=== PATIENT | female | born 1945 | race Caucasian/White ===

== ENCOUNTER 2023-01-14 07:54 | Emergency (ER) | payer OTHER ==
[~2023-01-14] VITALS: Ht 160 cm; Wt 65.8 kg
[~2023-01-14 07:54] MED LIST: LISI20TA30 PO
[2023-01-14 07:55] VITALS: BP_SYST 151
--- NOTE | 2023-01-14 07:57 | NUR ---
BROUGHT BACK TO BED #5 AND TRIAGED. REPORT GIVEN TO KAREN
--- NOTE | 2023-01-14 08:01 | NUR ---
BIB HOME BY WITH C/O SEVERE ABN PAIN / THAT STARTED LAST NIGHT AND BECAME WORSE THIS MORNING. PT STATES SHE WAS TREATED WITH ANTIBIOTICS ON THE OF THIS MONTH FOR DIVERTICULITIS. PT STATES SHE HAD SEVERE GAS LAST NIGHT AND HER PAIN IS LOCATED ON THE LOWER RIGHT ABN. PT STATES SHE IS EXPERIENCING PAIN WHILE URINATING. HX - HTN HOME MEDS: LISINOPRIL 40 MG ANXIETY MEDS LEVOTHYRLXINE PT IS AAX04, VSS, NAD, BREATHING IS EVEN AND UNLABORED, SKIN INTACT. PT IS AMBULATORY WITH STEADY GAIT, PT IN GOWN. PT PLACED ON CUSTOMER ADVISOR SHOWING NSR. SAFETY PRECAUTIONS AND COMFORT MEASURES IN PLACE. HOB ELEVADED, SIDE RAILS UP, BED IN LOWEST POSITION, CALL LIGHT WITHIN REACH. PENDING MD CRYSTAL AND ORDERS.
--- NOTE | 2023-01-14 08:02 | NUR ---
ER at bedside examining patient.
[2023-01-14] MEDS ORDERED: MORPHINE 4 MG INJ. 4 MG/ML VIAL IVP ONE (08:30)
[2023-01-14] MEDS ORDERED: ONDANSETRON HCL 4 MG/2 ML VIAL IVP ONE (08:30)
[2023-01-14 08:45] LABS: BASOPHILS # (AUTO) 0.1 K/uL (0.0-0.2); BASOPHILS % (AUTO) 0.7 % (0.0-2.0); EOSINOPHILS # (AUTO) 0.2 K/uL (0.0-0.4); EOSINOPHILS % (AUTO) 2.7 % (0.0-4.0); HEMATOCRIT 40.4 % (36-48); HEMOGLOBIN 13.6 g/dL (12.0-16.0); LYMPHOCYTES % (AUTO) 41.4 % (20.5-51.5); MEAN CORPUSCULAR HEMOGLOBIN 31 pg (27-31); MEAN CORPUSCULAR HGB CONC 34 % (32-36); MEAN CORPUSCULAR VOLUME 92 fL (79.0-98.0); MONOCYTES # (AUTO) 0.6 K/uL (0.0-1.0); MONOCYTES % (AUTO) 8.2 % (1.7-9.3); NEUTROPHILS # (AUTO) 3.4 K/uL (1.8-7.7); PLATELET COUNT (AUTO) 274 K/uL (130-430); RED BLOOD CELL COUNT(AUTO) 4.39 MIL/uL (4.2-6.2); RED CELL DISTRIBUTION WIDTH 12.7 % (9.0-15.0); WHITE BLOOD COUNT (AUTO) 7.2 K/uL (4.8-10.8)
[2023-01-14 09:03] LABS: ANION GAP 6 (5-15); CALCIUM 8.4 mg/dL (8.4-11.0); CHLORIDE 105 mmol/L (98-107); CREATININE 0.76 mg/dL (0.55-1.30); GLUCOSE 107 mg/dL (70-99); UREA NITROGEN, BLOOD 16 mg/dL (8-21)
[2023-01-14 09:07] LABS: ALANINE AMINOTRANSFERASE 27 U/L (12-78); ALBUMIN 3.2 g/dL (3.4-4.8); ASPARTATE AMINOTRANSFERASE 13 U/L (10-37); LIPASE 221 U/L (73-393); TOTAL BILIRUBIN 0.8 mg/dL (0.0-1.0)
[2023-01-14 10:40] LABS: BILIRUBIN,URINE NEGATIVE (NEGATIVE); BLOOD, URINE NEGATIVE (NEGATIVE); CLARITY/URINE CLEAR (CLEAR); COLOR,URINE YELLOW (YELLOW); GLUCOSE,URINE NEGATIVE (NEGATIVE); KETONES,URINE NEGATIVE (NEGATIVE); LEUKOCYTE ESTERASE ,URINE NEGATIVE (NEGATIVE); NITRITE, URINE NEGATIVE (NEGATIVE); PH,URINE 7.5 (5.0-8.0); PROTEIN URINE NEGATIVE (NEGATIVE); UROBILINOGEN,URINE 0.2 (0.2-1.0)
[2023-01-14] MEDS ORDERED: KETOROLAC TROMETHAMINE 15 MG VIAL IVP ONE (11:00)
[2023-01-14 11:56] VITALS: BP_SYST 135
--- NOTE | 2023-01-14 11:56 | NUR ---
PT MEDICALLY CLEARED FOR D/C. D/C INSTRUCTIONS GIVEN TO PT. PT TO FOLLOW UP WITH PCP WITHIN 1-3 DAYS AND TO RETURN TO ED FOR WORSENING S/S. PT VERBALIZED UNDERSTANDING. PT AAX04, NAD, BREATHING IS EVEN AND UNLABORED, WRISTBAND REMOVED. PT AMBULATORY WITH STEADY GAIT. PT LEFT ED WITH ALL BELONINGS.
== END 2023-01-14 11:56 | disposition home or self-care (01) ==
LOC: SED 07:54
DX: K57.90 Diverticulosis of intestine, part unspecified, without perforation or abscess without bleeding (principal); R10.32 Left lower quadrant pain; I10 Essential (primary) hypertension; Z88.0 Allergy status to penicillin; Z79.899 Other long term (current) drug therapy
CPT/HCPCS: 99285; 74177; 96374; 96375; 80053; 83690; 85025; 36415; 93005; 76376; 81003; J1885; J2405; J2270; Q9967